=== PATIENT | male | born 1960 | race Caucasian/White ===

== ENCOUNTER 2017-11-13 17:25 | Emergency (ER) | payer OTHER ==
[~2017-11-13] VITALS: Ht 182.9 cm; Wt 102.1 kg
[~2017-11-13 17:25] MED LIST: FLEXERIL PO; NORCO 5-325 TA1 EACH PO
[2017-11-13 17:54] VITALS: BP 151/105
[2017-11-13] MEDS ORDERED: NORVASC5 MG PO (17:58)
[2017-11-13] MEDS ORDERED: HYDROCODONE-AP1 EAC6 PO (18:18)
== END 2017-11-13 18:59 | disposition home or self-care (01) ==
LOC: ER 17:25
DX: S83.8X2A Sprain of other specified parts of left knee, initial encounter (principal); V43.52XA Car driver injured in collision with other type car in traffic accident, initial encounter; Y93.89 Activity, other specified; Y92.89 Other specified places as the place of occurrence of the external cause; Y99.8 Other external cause status